=== PATIENT | female | born 1995 | race African-American/Black ===

== ENCOUNTER 2019-02-03 20:44 | Emergency (ER) | payer OTHER ==
[~2019-02-03] VITALS: Ht 170.2 cm; Wt 88.5 kg
[2019-02-03] MEDS ORDERED: diphenhydrAMINE 50 MG/ML VIAL IVP ONE (22:30)
[2019-02-03] MEDS ORDERED: DEXAMETHASONE SOD PHOS 10 MG/ML VIAL IV ONE (22:30)
[2019-02-03] MEDS ORDERED: IV NORMAL SALINE 1,000ML 1,000 ML IV ONE (22:30)
[2019-02-03] MEDS ORDERED: BUTALB/APAP/CAFEIN 50/325/40MG TABLET. PO ONE (22:30)
[2019-02-04] MEDS ORDERED: FAMOTIDINE 20 MG/2 ML VIAL IVP ONE
--- NOTE | 2019-02-04 00:03 | PHYS DOC ---
Past History Past Medical History: Migraines Past Surgical History: No Surgical History Alcohol Use: None Drug Use: None Adult General Chief Complaint Chief Complaint: HEADACHE HPI HPI 23-year-old female presents with several week history of intermittent headaches. Patient reports has been seen several times in the ER at other facilities for same without significant improvement. Patient reports history of chronic migraines. Patient was previously treated with Imitrex however since recent she has not been able to take that medication. Patient reports she is 28 weeks. Denies any vaginal bleeding or discharge. Denies trauma. Denies neck pain. Patient reports she has trialed Fioricet without improvement. Review of Systems Review of Systems Constitutional: Denies fever or chills [] Eyes: Denies change in visual acuity, redness, or eye pain [] HENT: Denies nasal congestion or sore throat [] Respiratory: Denies cough or shortness of breath [] Cardiovascular: Denies chest pain and palpitations GI: Denies abdominal pain, nausea, vomiting, or diarrhea [] /[employer]: Denies dysuria or hematuria; reports Musculoskeletal: Denies neck pain, back pain, or joint pain [] Integument: Denies rash or skin lesions [] Neurologic: Reports headache; denies focal weakness or sensory changes [] Complete systems were reviewed and found to be within normal limits, except as documented in this note. Current Medications Current Medications Current Medications Medications (Trade) Dose Ordered Sig/Axel Start Time Stop Time Status Last Admin Dose Admin Acetaminophen/ Butalbital/ Caffeine (Fioricet) 1 tab 1X ONCE 02/03/19 22:30 02/03/19 22:31 DC 02/03/19 23:20 1 TAB Dexamethasone Sodium Phosphate (Decadron) 10 mg 1X ONCE 02/03/19 22:30 02/03/19 22:31 DC Diphenhydramine HCl (Benadryl) 50 mg 1X ONCE 02/03/19 22:30 02/03/19 22:31 DC 02/03/19 23:20 50 MG Sodium Chloride 1,000 ml @ 1,000 mls/hr 1X ONCE 02/03/19 22:30 02/03/19 23:29 DC 02/03/19 23:19 1,000 MLS/HR Allergies Allergies Allergies Coded Allergies Type Severity Reaction Last Updated Verified No Known Drug Allergies 02/03/19 No Physical Exam Physical Exam Constitutional: Well developed, well nourished, no acute distress, non-toxic appearance. [] HENT: Normocephalic, atraumatic, bilateral TMs normal, nose normal. [] Eyes: PERRL, EOMI, conjunctiva normal, no discharge. [] Neck: Normal range of motion, no tenderness, supple, no meningeal signs Cardiovascular: Heart rate regular rhythm, no murmur [] Lungs & Thorax: Bilateral breath sounds clear to auscultation [] Abdomen: Soft, no tenderness, gravid uterus Skin: Warm, dry, no erythema, no rash. [] Extremities: No tenderness, ROM intact, no edema. [] Neurologic: Alert and oriented X 3, normal motor function, normal sensory function, no focal deficits noted. [] Psychologic: Affect normal, judgement normal, mood normal. [] Current Patient Data Vital Signs Vital Signs Date Time Temp Pulse Resp B/P (MAP) Pulse Ox O2 Delivery O2 Flow Rate FiO2 02/03/19 20:50 98.0 90 16 99 Room Air EKG EKG [] Radiology/Procedures Radiology/Procedures [] Course & Med Decision Making Course & Med Decision Making Neurologically intact female presents at approximately 20 weeks gestation with report of acute on chronic migraine headache. Denies known trauma. No meningeal signs appreciated. Patient is afebrile. Symptomatically treatment provided with interval improvement of symptoms. IV fluid hydration also provided. Patient denies any pelvic discomfort, vaginal bleeding, or vaginal discharge. heart tones stable. Patient stable for discharge with outpatient follow-up with PCP/neurologist. Neurology referral provided. Discussed findings and plan with patient and friend, who acknowledge understanding and agreement. Dragon Disclaimer Dragon Disclaimer This electronic medical record was generated, in whole or in part, using a voice recognition dictation system. Departure Departure: Impression: Primary Impression: Headache Additional Impression: Disposition: 01 HOME, SELF-CARE Condition: IMPROVED Referrals: CASI DORANTES MD (PCP) Patient Instructions: ABCs of , Recurrent Migraine Headache, Easy-to- Read Problem Qualifiers Primary Impression: Headache Headache type: unspecified Headache chronicity pattern: chronic headache Intractability: intractable Qualified Codes: R51 - Headache Additional Impression: Weeks of gestation: 28 weeks Qualified Codes: Z3A.28 - 28 weeks gestation of JAN GARCÍA DO Feb 04, 2019 00:02
[2019-02-04 00:17] VITALS: BP 118/67
== END 2019-02-04 00:26 | disposition home or self-care (01) ==
LOC: ER 20:44
DX: O26.893 Other specified pregnancy related conditions, third trimester (principal); R51 Headache; G43.909 Migraine, unspecified, not intractable, without status migrainosus; Z3A.28 28 weeks gestation of pregnancy
CPT/HCPCS: 96374; 96375; J1200; J3490; 99283-25; 99284-25; J7030